=== PATIENT | female | born 1990 | race Caucasian/White ===

== ENCOUNTER 2020-03-02 09:44 | Emergency (ER) | payer BC, SELFPAY ==
[2020-03-02 09:48] VITALS: BP 134/101; PULSE 82; RESP 16; TEMP 36.6; O2SAT 98; BMI 36.3
[2020-03-02 09:53] VITALS: BP 134/101; PULSE 83; RESP 14; O2SAT 96
--- NOTE | 2020-03-02 09:58 | PC.NURSE ---
Read and agree with assessment.
[2020-03-02 10:31] LABS: Add Urine Microscopic? NO
--- NOTE | 2020-03-02 10:39 | ED_ITS ---
HPI - Female Genitourinary General: Chief complaint: General Medical Stated complaint: Pelvic Pain Time Seen by Provider: 03/02/20 09:52 History of Present Illness: HPI Narrative: 29-year-old female patient presents to the emergency department with complaints of pelvic pain x2 days. She reports history of miscarriage 5 years ago with some pelvic pain experienced but now worse, describes pain as sharp. She reports pain localized to the lower abdomen with radiation across the abdomen. She reports onset of nausea, denies vomiting. She reports HIV +, Recently tested for STD 3-4 weeks ago, results were negative, not treated. MD elicited complaint: vaginal discharge and pelvic pain Associated symptoms: Reports vaginal discharge; Deny abdominal pain, headache(s) or nausea Date of Last Menstrual Period: 02/17/20 Review of Systems General: Reports: 10 or more systems reviewed and unremarkable except in HPI and below Const: Reports: chills; Denies: fever(s) or diaphoresis Eyes: Denies: blurry vision or eye redness ENMT: Denies: throat pain, dental pain or disequilibrium Card: Denies: chest pain, palpitations or irregular heart rhythm Resp: Denies: dyspnea, productive cough, non-productive cough or wheezing GI: Denies: abdominal pain, nausea or vomiting : Reports: vaginal discharge, pelvic pain and other (LMP 02/17/2020); Denies: difficulty voiding, dysuria, urinary frequency or urinary urgency Musc: Denies: back pain Skin/Breast: Denies: rash or pruritus Neuro: Denies: headache(s), weakness in extremities or behavioral changes [place]/Lymph: Denies: easy bruising PFSH ED PFSH: Medical History (Updated 03/02/20 @ 13:41 by ASIF Velásquez) Depression HIV (human immunodeficiency virus infection) Surgical History (Updated 09/16/19 @ 11:55 by BEVERLY Lamar) History of tonsillectomy Social History (Updated 09/16/19 @ 11:33 by Christen Gomez LPN) Smoking and tobacco status: never smoked Second hand smoke exposure: No Smoking risk assessment/counseling performed?: No Alcohol intake: never Desire information about alcohol rehabilitation?: No Counseling given: No Female Reproductive History: Date of last menstrual period: 02/17/20 Physical Exam Const: COMMON NORMALS: no acute distress, patient oriented x3, healthy appearing and alert GENERAL APPEARANCE: cooperative, comfortable and well hydrated HENMT: COMMON NORMALS: normocephalic, Normal external nose present and moist oral mucous membranes HEAD & SCALP: normocephalic NOSE: Normal external nose present Eye: COMMON NORMALS: Equal, round and reactive pupils present and EOMs intact bilaterally GENERAL EYE: appearance normal, both eyes and all related structures PUPIL: Yes Equal, round and reactive pupils present Neck/C-Spine: COMMON NORMALS: full ROM and no lymphadenopathy GENERAL: Yes normal visual inspection and Yes trachea midline CERVICAL SPINE: Yes cervical ROM normal Lymph: LYMPHATIC: no lymphadenopathy noted Chest: COMMONS NORMALS: normal inspection of the chest Resp: COMMON NORMALS: normal respiratory effort and clear to auscultation bilaterally AUSCULTATION: clear to auscultation bilaterally Cardio: COMMON NORMALS: regular rhythm, S1 normal heart sound present and S2 normal heart sound present RHYTHM: regular rhythm HEART SOUNDS: S1 normal heart sound present and S2 normal heart sound present GI: COMMON NORMALS: Soft to palpation and non-tender INSPECTION: Yes normal to inspection PALPATION: Yes Soft to palpation : COMMON NORMALS: Yes no CVA tenderness, Yes normal external appearance and Yes normal appearance of the vagina BLADDER/KIDNEY EXAM: Yes no CVA tenderness EXTERNAL FEMALE EXAM: Yes normal appearance of the urethra SPECULUM EXAM - VAGINA: Yes Vaginal discharge present Vaginal discharge present: white and frothy SPECULUM EXAM - CERVIX: Yes Cervical os closed, No Cervical bleeding, No mucoid cervix and Yes Cervical tenderness present BIMANUAL EXAM - VAGINA & UTERUS: Yes normal palpation, Yes cervical motion tenderness, Yes Cervical tenderness present and No Uterine tenderness BIMANUAL EXAM - ADNEXA, OTHER: Yes mobile, Yes normal and Yes tender bilaterally Back/Pelvis: COMMON NORMALS: no CVA tenderness and thoracic and lumbar spine normal to inspection Extremity: COMMON NORMALS: normal to inspection and capillary refill normal Neuro: COMMON NORMALS: patient oriented x3 and no focal motor deficits SENSORIUM/ORIENTATION: Yes alert Psych: COMMON NORMALS: mental status grossly normal, Normal thought process present and cooperative ACTIVITY/MOTOR BEHAVIOR: Yes appropriate eye contact THOUGHT PROCESS: Normal thought process present Skin: COMMON NORMALS: no rashes or lesions noted and turgor normal GENERAL SKIN EXAM: no rashes or lesions noted and turgor normal Course ED course: 29-year-old female patient presents to the emergency department with pelvic pain. She is HIV positive, remains on antiviral medication. Reports HIV positive since a child. She reports pelvic pain x5 years with worsening onset past 2 to 3 days. Pelvic exam revealed frothy vaginal discharge -plan to treat for chlamydia/gonorrhea as results will take a while to result. Plan discussed with the patient, she agrees with follow-up for pelvic cyst to gynecology. Agrees to return to the emergency department if she develops worsening pelvic pain or other concerning symptoms. Vital Signs: Vital signs: Vital Signs Temperature 97.9 F 03/02/20 09:48 Pulse Rate 83 03/02/20 14:37 Respiratory Rate 12 03/02/20 14:37 Blood Pressure 98/63 03/02/20 14:37 Pulse Oximetry 99 03/02/20 14:37 MDM - Female Lab Data: Labs: Lab Results 03/02/20 03/02/20 03/02/20 Range/Units 10:00 10:40 10:42 WBC 13.2 H (4.0-10.0) 10^3/ uL RBC 5.05 (4.1-5.3) 10^6/u L Hgb 15.3 (11.5-15.3) g/dL Hct 45.4 (37.0-47.0) % MCV 89.9 (81-99) fL MCH 30.3 (28.0-34.0) pg MCHC 33.7 (30.0-36.0) g/dL RDW 12.2 (12.1-15.1) % Plt Count 345 (130-400) 10^3/c mm MPV 10.9 H (7.4-10.4) fL Neut % (Auto) 66.5 % Lymph % (Auto) 25.2 % [place] % (Auto) 6.5 % Eos % (Auto) 0.8 % Baso % (Auto) 0.5 % Neut # (Auto) 8.80 H (1.8-7.7) 10^3/u L Lymph # (Auto) 3.3 (0.8-4.8) 10^3/u L [place] # (Auto) 0.9 (0.2-0.9) 10^3/u L Eos # (Auto) 0.1 (0.0-0.8) 10^3/u L Baso # (Auto) 0.1 (0.0-0.1) 10^3/u L Nucleated RBC % (a uto) 0 % Nucleated RBCs # 0.0 /100WBC Sodium (136-145) mmol/L Potassium (3.5-5.1) mmol/L Chloride (98-107) mmol/L Carbon Dioxide (22-29) mmol/L Anion Gap (5-19) BUN (6-20) mg/dL Creatinine (0.5-0.9) mg/dL GFR Calculation (90-130) mL/min Glucose (65-115) mg/dL Calculated Osmolal ity (285-295) mOsm/k g Calcium (8.5-10.5) mg/dL Total Bilirubin (0.15-1.2) mg/dL AST (0-32) U/L ALT (0-33) U/L Alkaline Phosphata se (35-105) IU/L Total Protein (6.6-8.7) g/dL Albumin (3.5-5.2) g/dL Globulin (1.3-4.6) g/dL Lipase (13-60) U/L HCG, Qual (Negative) Urine Color Straw (Yellow) Urine Appearance Clear (CLEAR) Urine pH 5 (5-7) Ur Specific Gravit y 1.010 (1.005-1.030) Urine Protein Neg (Negative) Urine Glucose (UA) Norm (Normal) Urine Ketones Negative (Negative) Urine Blood Neg (Negative) Urine Nitrate Negative (Negative) Urine Bilirubin Neg (Negative) Urine Urobilinogen Norm (Negative) mg/dL Ur Leukocyte Jud ase Negative (Negative) C.trachomatis RNA (TMA) Cancelled Chlamydia/GC Comme nt Cancelled N.gonorrhoeae RNA (TMA) Cancelled 03/02/20 03/02/20 Range/Units 10:42 10:42 WBC (4.0-10.0) 10^3/ uL RBC (4.1-5.3) 10^6/u L Hgb (11.5-15.3) g/dL Hct (37.0-47.0) % MCV (81-99) fL MCH (28.0-34.0) pg MCHC (30.0-36.0) g/dL RDW (12.1-15.1) % Plt Count (130-400) 10^3/c mm MPV (7.4-10.4) fL Neut % (Auto) % Lymph % (Auto) % [place] % (Auto) % Eos % (Auto) % Baso % (Auto) % Neut # (Auto) (1.8-7.7) 10^3/u L Lymph # (Auto) (0.8-4.8) 10^3/u L [place] # (Auto) (0.2-0.9) 10^3/u L Eos # (Auto) (0.0-0.8) 10^3/u L Baso # (Auto) (0.0-0.1) 10^3/u L Nucleated RBC % (a uto) % Nucleated RBCs # /100WBC Sodium 141 (136-145) mmol/L Potassium 3.9 (3.5-5.1) mmol/L Chloride 106 (98-107) mmol/L Carbon Dioxide 23 (22-29) mmol/L Anion Gap 15.9 (5-19) BUN 10 (6-20) mg/dL Creatinine 0.7 (0.5-0.9) mg/dL GFR Calculation 100.4 (90-130) mL/min Glucose 96 (65-115) mg/dL Calculated Osmolal ity 291 (285-295) mOsm/k g Calcium 9.4 (8.5-10.5) mg/dL Total Bilirubin 0.2 (0.15-1.2) mg/dL AST 14 (0-32) U/L ALT 22 (0-33) U/L Alkaline Phosphata se 131 H (35-105) IU/L Total Protein 7.3 (6.6-8.7) g/dL Albumin 4.1 (3.5-5.2) g/dL Globulin 3.2 (1.3-4.6) g/dL Lipase 29 (13-60) U/L HCG, Qual Negative (Negative) Urine Color (Yellow) Urine Appearance (CLEAR) Urine pH (5-7) Ur Specific Gravit y (1.005-1.030) Urine Protein (Negative) Urine Glucose (UA) (Normal) Urine Ketones (Negative) Urine Blood (Negative) Urine Nitrate (Negative) Urine Bilirubin (Negative) Urine Urobilinogen (Negative) mg/dL Ur Leukocyte Jud ase (Negative) C.trachomatis RNA (TMA) Chlamydia/GC Comme nt N.gonorrhoeae RNA (TMA) Discharge Plan Discharge Patient Disposition: Home Clinical Impression: Pelvic pain Ovarian cyst Qualifiers: Laterality: left Qualified Code(s): N83.202 - Unspecified ovarian cyst, left side Condition: Stable Prescriptions: New IBU 800 mg tablet 800 mg PO TID PRN (Reason: pain) Qty: 30 RF: 0 No Action Dovato 50-300 mg tablet 1 tab PO DAILY RF: 0 Discharge Orders: Discharge Order (Routine); Ordered 03/02/20 Ordered By: Darby Rodriguez Discharge Diet: Usual diet Discharge Activity: Resume usual activity Patient Instructions: Ovarian Cyst (ED), Pelvic Pain Activity Restrictions/Additional Instructions: Referral to gynecology is currently pending, you will be contacted by social work manager for an appointment Return to the emergency department if you develop worsening pain, vomiting, or inability to tolerate oral fluids. Take ibuprofen with food, do not take [id number] medication as dual therapy can occur. Refrain from sexual intercourse until results of analysis is complete. You will be contacted if results are positive. Discharge Date/Time: 03/02/20 14:38 Coding Level of Care Code ED Fire Protection [employer]er for Chg Fwd Exam Comprehensive
[2020-03-02 10:46] VITALS: BP 131/85; PULSE 82; RESP 14; O2SAT 96
[2020-03-02 10:56] LABS: Bilirubin Urine Neg (Negative); Blood Urine Neg (Negative); Glucose Urine UA Norm (Normal); Ketones Urine Negative (Negative); Leukocyte Esterase Urine Negative (Negative); Nitrate Urine Negative (Negative); Protein Urine Neg (Negative); Urine Appearance Clear (CLEAR); Urine Color Straw (Yellow); Urobilinogen Urine Norm (Negative); pH Urine 5 (5-7)
[2020-03-02 11:13] LABS: Basophils # 0.1 10^3/uL (0.0-0.1); Basophils % 0.5 %; Eosinophils # 0.1 10^3/uL (0.0-0.8); Eosinophils % 0.8 %; Hematocrit 45.4 % (37.0-47.0); Hemoglobin 15.3 g/dL (11.5-15.3); Lymphocytes # 3.3 10^3/uL (0.8-4.8); Lymphocytes % 25.2 %; Mean Corpuscular HGB Conc 33.7 g/dL (30.0-36.0); Mean Corpuscular Hemoglobin 30.3 pg (28.0-34.0); Mean Corpuscular Volume 89.9 fL (81-99); Mean Platelet Volume 10.9 fL (7.4-10.4); Monocytes # 0.9 10^3/uL (0.2-0.9); Monocytes % 6.5 %; Neutrophils % 66.5 %; Nucleated Red Blood Cells % 0 %; Platelet Count 345 10^3/cmm (130-400); Red Blood Count 5.05 10^6/uL (4.1-5.3); Red Cell Distribution Width 12.2 % (12.1-15.1); White Blood Count 13.2 10^3/uL (4.0-10.0)
[2020-03-02 11:46] LABS: HCG, Serum Qual Negative (Negative)
[2020-03-02 11:47] LABS: Alanine Aminotransferase 22 U/L (0-33); Albumin Level 4.1 g/dL (3.5-5.2); Alkaline Phosphatase 131 IU/L (35-105); Anion Gap 15.9 (5-19); Aspartate Amino Transferase 14 U/L (0-32); Blood Urea Nitrogen 10 mg/dL (6-20); Calcium 9.4 mg/dL (8.5-10.5); Carbon Dioxide 23 mmol/L (22-29); Chloride 106 mmol/L (98-107); Globulin 3.2 g/dL (1.3-4.6); Glomerular Filtration Rate 100.4 mL/min (90-130); Glucose 96 mg/dL (65-115); Lipase 29 U/L (13-60); Osmolality Calculated 291 mOsm/kg (285-295); Potassium 3.9 mmol/L (3.5-5.1); Sodium 141 mmol/L (136-145); Total Bilirubin 0.2 mg/dL (0.15-1.2); Total Protein 7.3 g/dL (6.6-8.7)
[2020-03-02 12:11] VITALS: BP 119/79; PULSE 82; RESP 14; O2SAT 97
--- NOTE | 2020-03-02 12:21 | US_ITS ---
WS: [id number] TRANSABDOMINAL PELVIC AND TRANSVAGINAL PELVIC ULTRASOUND HISTORY: pelvic us COMPARISON: None available. Uterus: 7.9 cm x 5.9 cm x 4.0 cm. Normal size anteverted uterus. No fibroid or mass. Endometrium: 1.2 cm. Mild heterogeneity within the endometrium. Right ovary: 3.8 cm x 3.3 cm x 2.1 cm. Normal size ovary with multiple small follicles. No solid or c ystic mass. Normal vascularity. Left ovary: 3.9 cm x 3.5 cm x 3.0 cm. Normal size ovary with normal vascularity. Complex cyst associa jessica with the LEFT ovary measures 2.1 x 1.8 x 2.2 cm. There are additional small follicles. No free fluid. US/US pelvic with transvaginal IMPRESSION: 1. Endometrium is top normal size. 2. Complex cyst LEFT ovary. Probably a collapsing corpus luteum or hemorrhagic cyst.
[2020-03-02] MEDS: ibuprofen 800 mg tablet PO (13:40)
[2020-03-02] MEDS: azithromycin 250 mg Tablet 1000 MG PO (13:41)
[2020-03-02] MEDS: cefTRIAXone 1,000 MG in sodium chloride 0.9% (plus) 50 ML 100 MG IV (13:54)
[2020-03-02 13:56] VITALS: BP 113/74; PULSE 80; RESP 16; O2SAT 96
[2020-03-02 14:37] VITALS: BP 98/63; PULSE 83; RESP 12; O2SAT 99
--- NOTE | 2020-03-02 14:45 | DCPLANNER ---
manager urology was asked to schedule a follow up appointment for patient with [facility]. manager urology called the [facility], spoke with [place], gave clinic patients information. manager urology was told that patients information would be printed and reviewed. Clinic will call patient with appointment information.
--- NOTE | 2020-03-03 10:05 | DCPLANNER ---
Patient has a follow up appointment scheduled for Tuesday, March 10, 2020 at 8:[address] Carrillo. Clinic will call patient with appointment information.
--- NOTE | 2020-03-03 10:09 | DCPLANNER ---
Patient has a follow up appointment scheduled for Tuesday, March 10, 2020 at 8:[address] Carrillo at [facility]. Clinic will call patient with appointment information.
--- NOTE | 2020-03-13 16:06 | DCPLANNER ---
Patient had a follow up appointment scheduled for 03.10.20 with [facility] - patient did attend appointment.
== END 2020-03-02 14:38 | disposition home or self-care (01) ==
PROVIDERS: Emergency Provider Nurse Practitioner Family
DX: N83.202 Unspecified ovarian cyst, left side (principal); B20 Human immunodeficiency virus [HIV] disease
CPT/HCPCS: 12345; 76830; 76856; 80053; 81003; 83690; 84703; 85025; 87070; 87077; 87205; 87210; 87491; 87591; 96365; 99284; J0696; Q0144

== ENCOUNTER → 2021-10-22 13:49 | Outpatient (BNVA) | payer MEDICAID, SELFPAY | PROVIDERS: Visit Provider Obstetrics & Gynecology | DX: N92.6 Irregular menstruation, unspecified (principal); R10.2 Pelvic and perineal pain; N83.202 Unspecified ovarian cyst, left side | CPT/HCPCS: 83036; 83525; 84443 ==

== ENCOUNTER 2021-12-07 09:11 | Outpatient (CLI) | payer MEDICAID, SELFPAY ==
--- NOTE | 2021-12-07 09:30 | US_ITS ---
WS: [id number] ULTRASOUND PELVIS TECHNIQUE: Transabdominal and transvaginal. ULTRASOUND PELVIS TECHNIQUE: Transabdominal. CLINICAL INFORMATION: N83.202 - Unspecified ovarian cyst, left side LMP: ? : No. COMPARISON: March 02, 2020 FINDINGS: Uterus Orientation: Anteverted. Size: 8.3 cm x 4.4 cm x 3.9 cm. Masses: None. Cervix: Normal Endometrium: Normal. Endometrium thickness: 0.7 cm. Adnexa: Multiple follicular ovaries bilaterally. Small RIGHT ovarian cyst measuring 11 mm. Right ovary size: 3.9 cm x 2.4 cm x 1.7 cm. Right ovary volume: 7.9 ccm3. Left ovary size: 2.8 cm x 3.0 cm x 2.1 cm. Left ovary volume: 9.1 ccm3 Free fluid: Trace Other findings: None. US/US pelvic with transvaginal IMPRESSION: 1. Normal endometrium measuring 7 mm. 2. LEFT ovary is normal in appearance. Previously described LEFT complex cyst has resolved. 3. Small RIGHT ovarian cyst measuring 11 x 7 x 10 mm. 4. Multifollicular ovaries bilaterally.
== END 2021-12-07 09:12 | disposition home or self-care (01) ==
LOC: RAD 09:12
PROVIDERS: Visit Provider Obstetrics & Gynecology
DX: N83.202 Unspecified ovarian cyst, left side (principal)
CPT/HCPCS: 76830; 76856

== ENCOUNTER → 2021-12-27 12:08 | Outpatient (BNVA) | payer MEDICAID, SELFPAY | PROVIDERS: PCP Nurse Practitioner Family; Referring Provider Nurse Practitioner Family; Visit Provider Internal Medicine | DX: Z11.59 Encounter for screening for other viral diseases (principal); Z11.1 Encounter for screening for respiratory tuberculosis; R76.8 Other specified abnormal immunological findings in serum; M79.643 Pain in unspecified hand | CPT/HCPCS: 36415; 73120; 85651; 86140; 86160; 86162; 86200; 86235; 86255; 86376; 86480; 86704; 86803; 87340; 99203; 99204 ==

== ENCOUNTER → 2022-01-25 13:24 | Outpatient (BNVA) | payer MEDICAID, SELFPAY | PROVIDERS: PCP Nurse Practitioner Family; Visit Provider Obstetrics & Gynecology | DX: N92.6 Irregular menstruation, unspecified (principal); R10.2 Pelvic and perineal pain | CPT/HCPCS: 84443 ==

== ENCOUNTER → 2022-11-17 15:31 | Outpatient (BNVA) | payer MEDICAID, SELFPAY | PROVIDERS: PCP Nurse Practitioner Family; Visit Provider Internal Medicine | DX: R76.8 Other specified abnormal immunological findings in serum (principal); M79.643 Pain in unspecified hand | CPT/HCPCS: 36415; 80053; 82550; 82784; 83516; 83520; 83735; 84100; 84439; 84443; 85025; 86140 ==

== ENCOUNTER → 2023-02-02 16:30 | Outpatient (BNVA) | payer MEDICAID, SELFPAY | PROVIDERS: PCP Nurse Practitioner Family; Visit Provider Internal Medicine | DX: R76.8 Other specified abnormal immunological findings in serum (principal); M79.643 Pain in unspecified hand | CPT/HCPCS: 36415; 86003; 86008 ==

== ENCOUNTER 2023-02-28 09:55 | Outpatient (CLI) | payer MEDICAID, SELFPAY ==
--- NOTE | 2023-02-28 10:07 | XR_ITS ---
WS: [id number] Lumbar spine, 3 views, 02/28/2023 Clinical Data: R76.8 - Other specified abnormal immunological findings i... Comparison: None. Findings: No compression fractures or subluxation is seen. No disc space narrowing is seen. The transverse proc esses and SI joints are normal. Impression: Negative lumbar spine.
--- NOTE | 2023-02-28 10:07 | XR_ITS ---
WS: [id number] Lateral views of cervical spine in the flexion, extension and neutral positions. 02/28/2023 Clinical Data: R76.8 - Other specified abnormal immunological findings i... Comparison: None. Findings: No prevertebral soft tissue swelling is seen. There are no compression fractures. On flexion and exte nsion there is no limitation of motion or subluxation. Impression: Negative for limitation of motion or subluxation on flexion or extension.
[2023-03-02 16:05] LABS: Beef (27) IgE 0.12 kU/L; Beef Class 0/1; Lamb (F88) IgE <0.10 kU/L; Lamb Class 0; Pork (F26) IgE <0.10 kU/L; Pork Class 0
[2023-03-06 19:24] LABS: Galactose-alpha-1,3 IgE 0.79 kU/L (<0.10)
== END 2023-02-28 09:56 | disposition home or self-care (01) ==
LOC: LAB 09:56
PROVIDERS: PCP Nurse Practitioner Family; Visit Provider Internal Medicine
DX: M79.643 Pain in unspecified hand (principal); R76.8 Other specified abnormal immunological findings in serum
CPT/HCPCS: 36415; 72040; 72100; 86003; 86008

== ENCOUNTER → 2023-09-04 10:55 | Outpatient (BNVA) | payer MEDICAID, SELFPAY | PROVIDERS: PCP Nurse Practitioner Family; Referring Provider Nurse Practitioner Women's Health; Visit Provider Internal Medicine | DX: R63.5 Abnormal weight gain (principal); E03.9 Hypothyroidism, unspecified | CPT/HCPCS: 36415; 84439; 84443; 86800 ==

== ENCOUNTER → 2024-03-12 15:24 | Outpatient (BNVA) | payer MEDICAID, SELFPAY | PROVIDERS: PCP Nurse Practitioner Family; Visit Provider Internal Medicine Rheumatology | DX: Z79.899 Other long term (current) drug therapy (principal); Z11.59 Encounter for screening for other viral diseases; Z11.1 Encounter for screening for respiratory tuberculosis | CPT/HCPCS: 36415; 80076; 82565; 85025; 85651; 86140; 86480; 86704; 86803; 87340 ==

== ENCOUNTER → 2025-02-05 11:18 | Outpatient (BNVA) | payer MEDICAID, SELFPAY | PROVIDERS: PCP Nurse Practitioner Family; Visit Provider Internal Medicine Rheumatology | DX: Z79.899 Other long term (current) drug therapy (principal) | CPT/HCPCS: 36415; 80076; 82306; 82565; 85025; 85651; 86140 ==

== ENCOUNTER 2025-03-06 13:28 | Outpatient (CLI) | payer MEDICAID, SELFPAY ==
[2025-03-06 13:47] LABS: Hematocrit 41.5 % (36-47); Hemoglobin 14.10 g/dL (11.27-16.99); Mean Corpuscular HGB Conc 34.0 g/dL (30-55); Mean Corpuscular Hemoglobin 29.2 pg (27-33); Mean Corpuscular Volume 85.9 fl (85-98); Nucleated Red Blood Cells % 0 %; Platelet Count 332 10^3/cmm (157-399); Red Blood Count 4.83 10^6/uL (3.85-5.65); White Blood Count 11.62 10^3/uL (3.29-11.43)
[2025-03-06 14:12] LABS: Alanine Aminotransferase 15 U/L (0-33); Albumin Level 3.8 g/dL (3.5-5.2); Alkaline Phosphatase 102 U/L (35-105); Aspartate Amino Transferase 12 U/L (0-32); Globulin 3.0 g/dL (1.3-4.6); Total Protein 6.8 g/dL (6.6-8.7)
== END 2025-03-06 13:29 | disposition home or self-care (01) ==
LOC: LAB 13:30
PROVIDERS: PCP Nurse Practitioner Family; Visit Provider Internal Medicine Rheumatology
DX: Z79.899 Other long term (current) drug therapy (principal)
CPT/HCPCS: 36415; 80076; 82565; 85025; 85651; 86140